=== PATIENT | female | born 1945 | race Two or more races ===

== ENCOUNTER 2024-02-18 06:00 | Inpatient (IN) | payer OTHER, MEDICAID ==
[2024-02-15 08:03] LABS: Basophils # (auto) 0 10 ^3/uL (0-0.2); Basophils % (auto) 0.8 % (0.0-2.0); Eosinophils # (auto) 0.1 10 ^3/uL (0-0.8); Eosinophils % (auto) 2.1 % (0.0-7.0); Hemoglobin 13.7 g/dL (12.2-16.2); Lymphocytes # (auto) 1.8 10 ^3/uL (0.4-5.4); Lymphocytes % (auto) 42.7 % (10.0-50.0); Mean Corpuscular Hemoglobin 30.9 pg (28.0-32.0); Mean Corpuscular Hgb Conc. 34.2 g/dL (32.0-36.0); Mean Corpuscular Volume 90.6 fL (80.0-100.0); Monocytes # (auto) 0.4 10 ^3/uL (0-1.3); Monocytes % (auto) 10.4 % (0.0-12.0); Neutrophils # (auto) 1.8 10 ^3/uL (1.6-8.6); Nucleated Red Blood Cells % 0.2 %; Platelet Count (auto) 184 10^3/uL (140-450); Red Blood Cells 4.41 10^6/uL (4.0-5.20); White Blood Cell 4.2 10^3/uL (4.4-10.8)
[2024-02-15 08:23] LABS: Urine Bacteria FEW /hpf (None Seen); Urine Blood Negative /uL (Negative); Urine Clarity Clear (Clear); Urine Color Light-Yellow (Yellow); Urine Protein, UAD Negative (Negative); Urine Specific Gravity 1.022 (1.001-1.035); Urine Urobilinogen Normal (Negative); Urine WBC 40 /hpf (0 - 5)
[2024-02-15 08:25] LABS: INR 1.06 (0.9-1.15); Partial Thromboplastin Time 28.5 SEC (24.5-34.5); Prothrombin Time 11.2 sec (9.3-11.8)
[2024-02-15 08:26] LABS: Alanine Aminotransferase 20 U/L (7-40); Albumin 4.4 g/dL (3.2-4.8); Alkaline Phosphatase 80 U/L (46-116); Anion Gap 5 (5-15); Aspartate Aminotransferase 14 U/L (13-40); BUN/Creatinine Ratio 16.3 (10.0-20.0); Bilirubin, Total 0.9 mg/dL (0.2-1.0); Blood Urea Nitrogen 14 mg/dL (9-23); Calcium 9.7 mg/dL (8.7-10.4); Carbon Dioxide 27 mmol/L (20-30); Chloride 108 mmol/L (98-107); Glucose 91 mg/dL (74-106); Potassium 4.1 mmol/L (3.5-5.1); Sodium 140 mmol/L (136-145); Total Protein 6.5 g/dL (5.7-8.2)
[2024-02-18] VITALS (15 sets, daily range): BP systolic 114–139; BP diastolic 70–108; PULSE 64–92; RESP 16–20; TEMP 97.7–98.4; O2SAT 92–97
[~2024-02-18] VITALS: Ht 157.5 cm; Wt 77.1 kg
[~2024-02-18 06:00] MED LIST: AMIT50TA12 PO; CHOL100047 PO
[2024-02-18] MEDS: ceFAZolin 2 GM/D5W50ml 50 ML IV ONE (07:02)
[2024-02-18] MEDS: TETRACAINE 1% INJ 2 ML VIAL IJ ONE (07:24)
[2024-02-18] MEDS ORDERED: MORPHINE SULF PF 5 MG/10 ML VIAL ONE (07:34)
[2024-02-18] MEDS ORDERED: MIDAZOLAM HCL 2MG/2ML 2ml VIAL (1mg/ml) ONE (07:35)
[2024-02-18] MEDS ORDERED: fentaNYL CITRATE 100 MCG/2 ML VL ONE (07:35)
[2024-02-18] MEDS ORDERED: MIDAZOLAM HCL 2MG/2ML 2ml VIAL (1mg/ml) IV PRN (08:00)
[2024-02-18] MEDS ORDERED: HYDROmorphone HCL 2 MG/ML VL/or syr IV PRN (08:00)
[2024-02-18] MEDS ORDERED: hydrALAZINE HCL 20 MG/ML VL IV PRN (08:00)
[2024-02-18] MEDS ORDERED: DexAMETHasone SOD PHOS 10MG/1ML VIAL INJ IV PRN (08:00)
[2024-02-18] MEDS ORDERED: ONDANSETRON HCL 4 MG/2 ML VIAL IV PRN (08:00)
[2024-02-18] MEDS ORDERED: ePHEDrine SULFATE 50 MG/ML AMP IV PRN (08:00)
[2024-02-18] MEDS: VANCOMYCIN HCL 1000 MG VL ONE (09:44)
[2024-02-18] MEDS ORDERED: ACETAMINOPHEN 325 MG TAB PO PRN (10:00)
[2024-02-18] MEDS ORDERED: oxyCODONE HCL 5MG TAB PO PRN ×2 (10:00)
[2024-02-18] MEDS: SODIUM CHLORIDE 0.9% 1,000 ML IV SCH (10:25)
[2024-02-18] MEDS: ACETAMINOPHEN 325 MG TAB PO SCH (12:00)
[2024-02-18] MEDS: KETOROLAC TROMETH 30 MG/ML 1ML VIAL IV SCH (12:00)
[2024-02-18] MEDS: PREGABALIN 25 MG CAP PO SCH (12:27)
[2024-02-18] MEDS: ceFAZolin 2 GM/D5W50ml 50 ML IV SCH (14:00)
[2024-02-18] MEDS ORDERED: EPINEPHrine HCL 1 MG/1 ML AMP ONE (17:25)
[2024-02-18] MEDS: AMITRIPTYLINE HCL 25 MG TAB PO SCH (20:48)
[2024-02-19] VITALS (14 sets, daily range): BP systolic 130–156; BP diastolic 71–89; PULSE 74–90; RESP 16–20; TEMP 97.6–98.5; O2SAT 92–96
[2024-02-19 07:22] LABS: Basophils # (auto) 0 10 ^3/uL (0-0.2); Basophils % (auto) 0.1 % (0.0-2.0); Eosinophils # (auto) 0 10 ^3/uL (0-0.8); Hematocrit 40.5 % (36.0-46.0); Hemoglobin 13.5 g/dL (12.2-16.2); Lymphocytes # (auto) 1.1 10 ^3/uL (0.4-5.4); Lymphocytes % (auto) 9.3 % (10.0-50.0); Mean Corpuscular Hemoglobin 30.5 pg (28.0-32.0); Mean Corpuscular Hgb Conc. 33.3 g/dL (32.0-36.0); Mean Corpuscular Volume 91.6 fL (80.0-100.0); Monocytes # (auto) 0.8 10 ^3/uL (0-1.3); Monocytes % (auto) 7.2 % (0.0-12.0); Neutrophils # (auto) 9.8 10 ^3/uL (1.6-8.6); Neutrophils % (auto) 83.4 % (37.0-80.0); Platelet Count (auto) 234 10^3/uL (140-450); Red Blood Cells 4.42 10^6/uL (4.0-5.20); Red Cell Distribution Width 13.8 % (11.8-14.3); White Blood Cell 11.8 10^3/uL (4.4-10.8)
[2024-02-19 07:42] LABS: Alanine Aminotransferase 18 U/L (7-40); Albumin 4.1 g/dL (3.2-4.8); Alkaline Phosphatase 77 U/L (46-116); Anion Gap 8 (5-15); Aspartate Aminotransferase < 8 U/L (13-40); BUN/Creatinine Ratio 15.5 (10.0-20.0); Bilirubin, Total 0.7 mg/dL (0.2-1.0); Blood Urea Nitrogen 13 mg/dL (9-23); Calcium 9.6 mg/dL (8.7-10.4); Carbon Dioxide 22 mmol/L (20-30); Chloride 109 mmol/L (98-107); Glucose 145 mg/dL (74-106); Potassium 4.3 mmol/L (3.5-5.1); Sodium 139 mmol/L (136-145); Total Protein 6.7 g/dL (5.7-8.2)
[2024-02-19] MEDS ORDERED: hydrALAZINE HCL 20 MG/ML VL IV PRN (09:45)
[2024-02-19] MEDS: ASPirin 81 mg TAB PO SCH (10:32)
[2024-02-19] MEDS: SODIUM CHLORIDE 0.9% 1,000 ML IV SCH (10:37)
[2024-02-19] MEDS ORDERED: TRANEXAMIC ACID 1,000 mg/10ml INJ VIAL IV ONE (18:11)
== END 2024-02-19 18:12 | disposition home or self-care (01) | DRG 470 ==
LOC: SUR 06:00 → TELE 09:54 → TELE-CENTR 11:19
PROVIDERS: ADMIT Orthopaedic Surgery; ATTEND Internal Medicine
PROC: 0SRC069 Replacement of Right Knee Joint with Oxidized Zirconium on Polyethylene Synthetic Substitute, Cemented, Open Approach (ICD-10-PCS; principal; 2024-02-18 07:36)
DX: M17.11 Unilateral primary osteoarthritis, right knee (principal); E66.9 Obesity, unspecified; Z68.31 Body mass index [BMI] 31.0-31.9, adult
CPT/HCPCS: 36415; 73560; 80053; 81001; 85025; 85610; 85730; 86850; 86900; 86901; 97110; 97116; 97163; 97530; G0378; J0171; J2250